=== PATIENT | female | born 1995 | race Hispanic/Latino ===

== ENCOUNTER 2024-12-12 06:05 | Day surgery (SDC) | payer BC ==
[2024-12-08 13:40] LABS: IMMATURE GRANULOCYTE ABSOLUTE 0.03 K/uL (0-1); NUCLEATED RED BLOOD CELLS 0.0 % (0.0-0.19); PLATELET COUNT (AUTO) 259 K/uL (130-400); RED BLOOD CELL COUNT(AUTO) 4.33 MIL/uL (4.00-5.50); RED CELL DISTRIBUTION WIDTH 13.3 % (11.0-15.5); WHITE BLOOD COUNT (AUTO) 6.4 K/uL (4.8-10.8)
[2024-12-08 14:01] LABS: CREATININE 0.9 mg/dL (0.5-1.0); GLOMERULAR FILTR. RATE CALC 90.0 mL/min (>90); GLUCOSE,RANDOM 82.0 mg/dL (70-105); INR <= 0.93 (0.85-1.15); SODIUM SERUM 136.0 mmol/L (136-145); UREA NITROGEN, BLOOD 15.0 mg/dL (7-18)
[2024-12-08 14:02] VITALS: BP 128/75; PULSE 86; RESP 18; TEMP 97.3
--- NOTE | 2024-12-09 10:23 | EKG ---
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
[2024-12-12] VITALS (16 sets, daily range): BP systolic 117–141; BP diastolic 70–90; PULSE 79–102; RESP 16–20; TEMP 97–97.7
[~2024-12-12] VITALS: Ht 157.5 cm; Wt 93.3 kg
[~2024-12-12 06:05] MED LIST: DICY10 PO; KETO10TA2 PO; ONDA-243 PO
[2024-12-12] MEDS ORDERED: NEOSTIGMINE METHYLSULFATE 1MG/ML IV ONE (07:15)
[2024-12-12] MEDS ORDERED: LIDOCAINE HCL MPF 1% 5ML VIAL ONE (07:15)
[2024-12-12] MEDS ORDERED: GLYCOPYRROLATE 0.2 MG/ML 5 ML VIAL ONE (07:15)
[2024-12-12] MEDS ORDERED: MIDAZOLAM HCL 1 MG/ML 2ML VIAL ONE (07:16)
[2024-12-12] MEDS: LACTATED RINGERS 1000ML 1,000 ML IV ONE (07:29)
[2024-12-12] MEDS ORDERED: INDOCYANINE GREEN 25 MG VIAL IJ ONE (07:36)
[2024-12-12] MEDS ORDERED: FAMOTIDINE 20MG VIAL IV ONE (08:06)
--- NOTE | 2024-12-12 09:12 | OP ---
Operative Note: DATE OF PROCEDURE: 12/12/24 SURGEON: MAT TORRES MD NURSING FACULTY: [please review operative record] ANESTHESIA: [general and local] ANESTHESIOLOGIST/DIRECTOR QUALITY ASSURANCE: [please review operative record] PREOPERATIVE DIAGNOSIS: [symptomatic cholelithiasis] POSTOPERATIVE DIAGNOSIS: [same] SYNOPSIS: [enlarged gallbladder. IC green properly identifying cystic duct, hepatic duct and common bile duct. No ductal dilation. No intraductal filling defects noted.] PROCEDURE: [Robotic assisted laparoscopic cholecystectomy with IC green cholangiography] ESTIMATED BLOOD LOSS: [10 ccs] INDICATIONS: [29 yo female with chronic right upper quadrant postprandial pain. mild elevation of LFTs and imaging showing cholelithiasis without cholecystitis. Patient diagnosed with symptomatic cholelithiasis. Pailed failed conservative management with dietary changes and analgesics. Recommendation was given for cholecystectomy. Risks, benefits, alternatives discussed. All questions answered. Patient agreed to proceed.] DESCRIPTION OF PROCEDURE: [After appropriate consent was obtained, the patient was brought into the operating room and placed in supine position on the operating table. SCDs were placed, preop antibiotics were given. Patient underwent induction of general anesthesia, endotracheal intubation. Patient was then prepped and draped in usual sterile fashion. Time-out was performed. Through a left subcostal incision, Veress needle was inserted into the peritoneal cavity. Insufflation was allowed to 12 mmHg. Through a supraumbilical incision, 8 mm trocar and laparoscope were inserted into the peritoneal cavity using [employer]. Veress needle and this vicinity were examined with no signs of injury. Rest of my trocars were all placed under d irect visualization. Patient was positioned on a reverse Trendelenburg at 20. The Walker robot was docked. Upon examination of the gallbladder, it appeared enlarged. A few omental adhesions were taken down using hook electrocautery. The liver and gallbladder were retracted cephalad exposing area for Calot's triangle dissection. Using hook electrocautery, dissection was accomplished. IC green cholangiography showed proper identification of the cystic duct, visualization of hepatic and common bile duct. Cystic artery was also isolated. Cystic artery was clipped once and cauterized and sharply divided. Cystic duct was clipped 3 times with two of these clips staying behind after sharp division. Gallbladder was removed from the gallbladder fossa using bipolar energy. Hemostasis was achieved with bipolar energy as well. Once removed from the gallbladder fossa, gallbladder was placed in an Endo-Catch bag. DaVinci robot was undocked at this time. Gallbladder was removed from the peritoneal cavity with a bag through an 8 mm trocar site. The fascia of the site was closed with 0 Vicryl suture through a suture Passer. Final inspection revealed adequate hemostasis, no concerns for leakage. Counts were correct at the end of the case. All instruments were removed. Abdomen was allowed to deflate. Skin incisions were closed with 4-0 Monocryl. Dermabond was applied over the incisions. Patient tolerated the procedure well. Was transferred to recovery in a good condition.] MAT TORRES MD Dec 12, 2024 09:12
--- NOTE | 2024-12-12 09:14 | DS ---
Discharge Summary Hospital Course Patient is a 29-year-old female who was admitted from the outpatient setting for elective robotic assisted laparoscopic cholecystectomy due to symptomatic cholelithiasis on 12/12/2024. Patient tolerated the procedure well. No issues at this time. Patient with no major complaints, pain well controlled. Remains hemodynamically stable, afebrile. Aerating well on room air. Normal sinus rhythm. Abdomen is benign. Incisions clean dry and intact. No rebound or guarding, appropriately tender to palpation. Patient to advance diet as tolerated. No lifting more than 20 lb for a month. Postop follow up already in place, postop medications already submitted to the patient's pharmacy. Return precautions given including fevers of 101.5 or higher, worsening abdominal pain, intractable nausea or vomiting. MAT TORRES MD Dec 12, 2024 09:14
[2024-12-12] MEDS: INDOCYANINE GREEN 25 MG VIAL IJ ONE (09:35)
--- NOTE | 2024-12-12 11:05 | NUR ---
Full and complete discharge instructions given to Patient and Family both verbally and in writing. Explained Surgical procedure precautions and follow up. Lap Noreen incision sites clean dry and intact. No evidence of bleeding, bruising or hematoma. Voided large amount in bathroom. All questions answered. PIV removed with catheter tip intact. Family at bedside appearing supportive. W/C to POV with Family to home
== END 2024-12-12 10:45 | disposition home or self-care (01) ==
LOC: DAH 06:05
PROVIDERS: ATTEND Surgery
DX: K80.00 Calculus of gallbladder with acute cholecystitis without obstruction (principal); R94.5 Abnormal results of liver function studies; Z79.899 Other long term (current) drug therapy
CPT/HCPCS: 47563; S2900; 36415; 80048; 81025; 84703; 85025; 85610; 85730; 86850; 86900; 86901; 88304; 93005; J1100; J2250; J2371; J2405; J2704; J2710; J3010; J3490; J7120; A4215; A4216; A4221; A4222; A4223; A4600; A4663; A4930; A6260; J0665; J0690